=== PATIENT | female | born 1990 | race Caucasian/White ===

== ENCOUNTER 2016-06-02 17:33 | Emergency (ER) | payer SELFPAY ==
[~2016-06-02 17:33] MED LIST: CIPR500T94 PO; CYCL10TA2 PO; HYDR-2666 PO; HYDR-971 PO; TRAM50TA PO
[2016-06-02 19:00] VITALS: BP 168/109
[2016-06-02] MEDS ORDERED: HYDR-971 PO (19:02)
[2016-06-02] MEDS ORDERED: AMOX500C PO (19:02)
--- NOTE | 2016-06-02 19:02 | PHYS DOC ---
Past Medical History Past Medical History: Kidney Stone Past Surgical History: Tonsillectomy Additional Past Surgical Histo: ADNOIDS Alcohol Use: Occasionally Drug Use: Marijuana Adult General Chief Complaint Chief Complaint: EARACHE/EAR PAIN [facility] HPI Patient is a 25 year old female presents emergency room with a complaint of atraumatic right ear pain for the past 3 days. Patient denies any swimming insertion in her ear canal. She reports fevers at home to 102.1 today. States that she took Tylenol approximately 2 hours prior to arrival. Patient denies antibiotic use within the past 90 days. She states that she currently doesn't have a primary care doctor. Review of Systems Review of Systems Constitutional: Denies fever or chills [] Eyes: Denies change in visual acuity, redness, or eye pain [] HENT: Denies nasal congestion or sore throat [] Respiratory: Denies cough or shortness of breath [] Cardiovascular: No additional information not addressed in HPI [] GI: Denies abdominal pain, nausea, vomiting, bloody stools or diarrhea [] : Denies dysuria or hematuria [] Musculoskeletal: Denies back pain or joint pain [] Integument: Denies rash or skin lesions [] Neurologic: Denies headache, focal weakness or sensory changes [] Endocrine: Denies polyuria or polydipsia [] Allergies Allergies Allergies Coded Allergies Type Severity Reaction Last Updated Verified No Known Drug Allergies 10/13/15 No Physical Exam Physical Exam Constitutional: Well developed, well nourished, no acute distress, non-toxic appearance. Patient is afebrile. HENT: Normocephalic, atraumatic, bilateral external ears normal, oropharynx moist, no oral exudates, nose normal. Bilateral ear canals are excoriated which is consistent with her statement that she has not insert anything in her ear canals. Right tympanic membrane is bulging and hyperemic. The margins of the umbo or slightly distorted. There is no fluid meniscus or perforation. There is no evidence of mastoiditis. Eyes: PERRLA, EOMI, conjunctiva normal, no discharge. [] Neck: Normal range of motion, no tenderness, supple, no stridor. [] Cardiovascular:Heart rate regular rhythm, no murmur [] Lungs & Thorax: Bilateral breath sounds clear to auscultation [] Abdomen: Bowel sounds normal, soft, no tenderness, no masses, no pulsatile masses. [] Skin: Warm, dry, no erythema, no rash. [] Back: No tenderness, no CVA tenderness. [] Extremities: No tenderness, no cyanosis, no clubbing, ROM intact, no edema. [] Neurologic: Alert and oriented X 3, normal motor function, normal sensory function, no focal deficits noted. [] Psychologic: Affect normal, judgement normal, mood normal. [] Current Patient Data Vital Signs Vital Signs Date Time Temp Pulse Resp B/P Pulse Ox O2 Delivery O2 Flow Rate FiO2 06/02/16 19:00 98.3 80 18 100 Room Air 98.3 EKG EKG [] Radiology/Procedures Radiology/Procedures [] Course & Med Decision Making Course & Med Decision Making Patient is receiving an additional prescription for Cortisporin otic suspension. [facility] does not have this as it medication listed. The hand written prescription will be provided. Dragon Disclaimer Dragon Disclaimer This electronic medical record was generated, in whole or in part, using a voice recognition dictation system. Departure Departure Impression: Primary Impression: Otitis media Additional Impression: Otitis externa Disposition: 01 HOME, SELF-CARE Condition: GOOD Referrals: NO PCP (PCP) Patient Instructions: Otitis Externa, [id number], Otitis Media, Adult, Easy- to-Read Additional Instructions: 1. Take the medication as prescribed. 2. Review the discharge instructions provided for self-care and reasons to return the emergency department. 3. Use the pamphlet provided for assistance in finding a primary care doctor to address your medical concerns. Scripts Hydrocodone/Apap 5-325 ([place] 5-325 Tablet)1 Each Tablet1 Tab PO PRN Q6HRS PRN PAIN #10 TAB Ref 0 Prov:ROXY FARR 06/02/16 Amoxicillin 500 Mg Capsule1 Cap PO TID #30 CAP Prov:ROXY FARR 06/02/16 Problem Qualifiers ROXY FARR Jun 02, 2016 19:02
== END 2016-06-02 19:08 | disposition home or self-care (01) ==
LOC: ER 17:33
DX: H66.91 Otitis media, unspecified, right ear (principal); H60.91 Unspecified otitis externa, right ear; F12.10 Cannabis abuse, uncomplicated
CPT/HCPCS: 99283

== ENCOUNTER 2016-12-22 19:10 | Emergency (ER) | payer SELFPAY ==
[~2016-12-22] VITALS: Ht 167.6 cm; Wt 133.8 kg
[~2016-12-22 19:10] MED LIST changes: +AMOX500C PO; -HYDR-2666 PO; +HYDR-2758 PO
[2016-12-22 20:33] LABS: BASO # 0.1 x10^3/uL (0.0-0.2); BASO % 0 % (0-3); EOS % 1 % (0-3); HEMATOCRIT 47.4 % (36.0-47.0); LYMPH # 1.6 x10^3/uL (1.0-4.8); LYMPH % 11 % (24-48); MEAN CORPUSCULAR HEMOGLOBIN 32 pg (25-35); MEAN CORPUSCULAR HGB CONC 34 g/dL (31-37); MEAN CORPUSCULAR VOLUME 93 fL (79-100); MONO % 3 % (0-9); NEUT % 86 % (31-73); PLATELET COUNT 373 x10^3/uL (140-400); RED BLOOD COUNT 5.07 x10^6/uL (3.50-5.40); RED CELL DISTRIBUTION WIDTH 13.4 % (11.5-14.5); WHITE BLOOD COUNT 14.9 x10^3/uL (4.0-11.0)
[2016-12-22 21:00] LABS: CALCIUM 9.2 mg/dL (8.5-10.1); CREATININE 1.1 mg/dL (0.6-1.0); GFR 60.5; POTASSIUM 3.8 mmol/L (3.5-5.1)
[2016-12-22] MEDS ORDERED: fentaNYL PF VIAL 100 MCG/2 ML VIAL IV ONE (21:00)
[2016-12-22] MEDS ORDERED: PROCHLORPERAZINE 10 MG/2 ML VIAL. IV ONE (21:00)
[2016-12-22 21:01] LABS: NEG OBC SER NEG; POS OBC SER POS
[2016-12-22 21:04] LABS: ALBUMIN 3.6 g/dL (3.4-5.0); ALBUMIN/GLOBULIN RATIO 0.9 (1.0-1.7); C-REACTIVE PROTEIN 6.3 mg/L (0-3.3); TOTAL BILIRUBIN 0.6 mg/dL (0.2-1.0); TOTAL PROTEIN 7.6 g/dL (6.4-8.2)
[2016-12-22 21:34] LABS: % EOS 1 % (0-5); PLT ESTIMATE ADEQUATE (ADEQUATE)
[2016-12-22 21:45] VITALS: BP 175/62
[2016-12-22 22:24] LABS: BILIRUBIN,URINE NEGATIVE (NEG); GLUCOSE,URINE NEGATIVE (NEG); NITRITE,URINE NEGATIVE (NEG); PROTEIN,URINE NEGATIVE (NEG-TRACE); UROBILINOGEN,URINE 0.2 mg/dL (0.2 mg/dL)
[2016-12-22 22:28] LABS: BACTERIA,URINE FEW /HPF (0-FEW); BARBITURATES NEG (NEG); BENZODIAZEPINES POS (NEG); CANNABINOIDS POS (NEG); COCAINE NEG (NEG); METHADONE NEG (NEG); OPIATES NEG (NEG); PHENCYCLIDINE NEG (NEG); RBC,URINE 0 /HPF (0-2); SQUAMOUS EPITHELIAL CELL,UR MANY /LPF
[2016-12-22] MEDS ORDERED: CONTRAST GIVEN MC PRN (23:00)
[2016-12-22] MEDS ORDERED: IOHEXOL 300 MG/ML 75 ML VIAL IV ONE (23:30)
--- NOTE | 2016-12-23 00:13 | PHYS DOC ---
Past Medical History Past Medical History: Anxiety, Kidney Stone Past Surgical History: Tonsillectomy Additional Past Surgical Histo: ADNOIDS Alcohol Use: Occasionally Drug Use: None Adult General Chief Complaint Chief Complaint: MULTIPLE COMPLAINTS HPI HPI Patient is a 25 year old male with history of anxiety who presents with hyperventilation syndrome, dizziness, tingling in hands and around mouth, nausea and vomiting. Patient states she was nauseated with epigastric abdominal pain was unable to keep down her Seroquel earlier today. She reports becoming acutely anxious this evening with dizziness, tingling around hands and fingers. She presents to the emergency department carpopedal spasm and lightheadedness. Patient reports nausea with multiple episodes earlier today but has not vomited in the past 3 hours. Reports epigastric pain worse with vomiting. Vomit contained stomach contents and bile. Denies hematemesis coffee-ground emesis, constipation or diarrhea. No back pain, flank pain. No fever chills no hematuria , urinary frequency urgency. No prior abdominal surgeries. Patient denies other symptoms or complaints at this time. Review of Systems Review of Systems Review of symptoms as per history of present illness. All other review symptoms are negative. Current Medications Current Medications Current Medications Medications (Trade) Dose Ordered Sig/Tita Start Time Stop Time Status Last Admin Dose Admin Fentanyl Citrate (Fentanyl 2ml Vial) 75 mcg 1X ONCE 12/22/16 21:00 12/22/16 21:01 DC 12/22/16 20:47 75 MCG Info (Do NOT chart on this entry -- for MONITORING) 1 each PRN DAILY PRN 12/22/16 23:00 12/24/16 22:59 Iohexol (Omnipaque 300 Mg/ml) 75 ml 1X ONCE 12/22/16 23:30 12/22/16 23:31 DC Lorazepam (Ativan) 1 mg 1X ONCE 12/22/16 21:00 12/22/16 21:01 DC Prochlorperazine Edisylate (Compazine) 10 mg 1X ONCE 12/22/16 21:00 12/22/16 21:01 DC 12/22/16 20:47 10 MG Allergies Allergies Allergies Coded Allergies Type Severity Reaction Last Updated Verified No Known Drug Allergies 10/13/15 No Physical Exam Physical Exam Constitutional: Well developed, well nourished, no acute distress, non-toxic appearance. [] HENT: Normocephalic, atraumatic, bilateral external ears normal, oropharynx moist, no oral exudates, nose normal. [] Eyes: PERRLA, EOMI, conjunctiva normal, no discharge. [] Neck: Normal range of motion, no tenderness, supple, no stridor. [] Cardiovascular:Heart rate regular rhythm, no murmur [] Lungs & Thorax: Bilateral breath sounds clear to auscultation [] Abdomen: Bowel sounds normal, soft, he is epigastric pain, mild tenderness, no rebound rigidity or guarding and obesity compromising exam. [] Skin: Warm, dry, no erythema, no rash. [] Back: No tenderness, no CVA tenderness. [] Extremities: No tenderness, no cyanosis, no clubbing, ROM intact, no edema. [] Neurologic: Alert and oriented X 3, normal motor function, normal sensory function, no focal deficits noted. [] Psychologic: Affect normal, judgement normal, mood normal. [] Current Patient Data Vital Signs Vital Signs Date Time Temp Pulse Resp B/P (MAP) Pulse Ox O2 Delivery O2 Flow Rate FiO2 12/22/16 21:45 120 175/62 (99) 87 12/22/16 20:47 Room Air 12/22/16 19:25 97.8 38 97.8 Lab Values Laboratory Tests Test 12/22/16 19:55 12/22/16 22:15 White Blood Count 14.9 x10^3/uL (4.0-11.0) H Red Blood Count 5.07 x10^6/uL (3.50-5.40) Hemoglobin 16.0 g/dL (12.0-15.5) H Hematocrit 47.4 % (36.0-47.0) H Mean Corpuscular Volume 93 fL (79-100) Mean Corpuscular Hemoglobin 32 pg (25-35) Mean Corpuscular Hemoglobin Concent 34 g/dL (31-37) Red Cell Distribution Width 13.4 % (11.5-14.5) Platelet Count 373 x10^3/uL (140-400) Neutrophils (%) (Auto) 86 % (31-73) H Lymphocytes (%) (Auto) 11 % (24-48) L Monocytes (%) (Auto) 3 % (0-9) Eosinophils (%) (Auto) 1 % (0-3) Basophils (%) (Auto) 0 % (0-3) Neutrophils # (Auto) 12.7 x10^3uL (1.8-7.7) H Lymphocytes # (Auto) 1.6 x10^3/uL (1.0-4.8) Monocytes # (Auto) 0.4 x10^3/uL (0.0-1.1) Eosinophils # (Auto) 0.1 x10^3/uL (0.0-0.7) Basophils # (Auto) 0.1 x10^3/uL (0.0-0.2) Segmented Neutrophils % 81 % (35-66) H Band Neutrophils % 2 % (0-9) Lymphocytes % 10 % (24-48) L Monocytes % 6 % (0-10) Eosinophils % 1 % (0-5) Platelet Estimate Adequate (ADEQUATE) Sodium Level 144 mmol/L (136-145) Potassium Level 3.8 mmol/L (3.5-5.1) Chloride Level 103 mmol/L (98-107) Carbon Dioxide Level 23 mmol/L (21-32) Anion Gap 18 (6-14) H Blood Urea Nitrogen 8 mg/dL (7-20) Creatinine 1.1 mg/dL (0.6-1.0) H Estimated GFR (Cockcroft-Gault) 60.5 BUN/Creatinine Ratio 7 (6-20) Glucose Level 117 mg/dL (70-99) H Calcium Level 9.2 mg/dL (8.5-10.1) Total Bilirubin 0.6 mg/dL (0.2-1.0) Aspartate Amino Transferase (AST) 29 U/L (15-37) Alanine Aminotransferase (ALT) 47 U/L (14-59) Alkaline Phosphatase 78 U/L (46-116) C-Reactive Protein, Quantitative 6.3 mg/L (0-3.3) H Total Protein 7.6 g/dL (6.4-8.2) Albumin 3.6 g/dL (3.4-5.0) Albumin/Globulin Ratio 0.9 (1.0-1.7) L Lipase 98 U/L (73-393) Serum Test, Qualitative Negative (NEG) Urine Collection Type Unknown Urine Color Yellow Urine Clarity Cloudy Urine pH 8.0 Urine Specific Filer 1.025 Urine Protein Negative mg/dL (NEG-TRACE) Urine Glucose (UA) Negative mg/dL (NEG) Urine Ketones (Stick) 15 mg/dL (NEG) Urine Blood Negative (NEG) Urine Nitrite Negative (NEG) Urine Bilirubin Negative (NEG) Urine Urobilinogen Dipstick 0.2 mg/dL (0.2 mg/dL) Urine Leukocyte Esterase Small (NEG) Urine RBC 0 /HPF (0-2) Urine WBC 1-4 /HPF (0-4) Urine Squamous Epithelial Cells Many /LPF Urine Bacteria Few /HPF (0-FEW) Urine Mucus Mod /LPF Urine Opiates Screen Neg (NEG) Urine Methadone Screen Neg (NEG) Urine Barbiturates Neg (NEG) Urine Phencyclidine Screen Neg (NEG) Urine Amphetamine/Methamphetamine Neg (NEG) Urine Benzodiazepines Screen Pos (NEG) Urine Cocaine Screen Neg (NEG) Urine Cannabinoids Screen Pos (NEG) Urine Ethyl Alcohol Neg (NEG) Laboratory Tests 12/22/16 19:55 Laboratory Tests 12/22/16 19:55 EKG EKG [] Radiology/Procedures Radiology/Procedures [] Course & Med Decision Making Course & Med Decision Making Pertinent Labs and Imaging studies reviewed. (See chart for details) [Nondescript abdominal pain with vomiting and elevation white blood cell count. Given Limited exam, CT abdomen and pelvis was ordered. However, the patient states she fell improved and did not wish to have the CT. States she prefers to follow-up with her primary care physician for reevaluation should her symptoms continue. I Discussed with the patient the limitations of diagnosis and treatment without a CT scan should be needed to exclude more serious pathology given the severity of his symptoms. Patient verbalizes understanding of risks and benefits of discharge but prefers to leave nonetheless. She is instructed to return should she change her mind regarding further imaging or hospitalization.] Dragon Disclaimer Dragon Disclaimer This electronic medical record was generated, in whole or in part, using a voice recognition dictation system. Departure Departure Impression: Primary Impression: Abdominal pain Disposition: 07 AGAINST MEDICAL ADVICE Condition: GUARDED Patient Instructions: Abdominal Pain (Nonspecific) Additional Instructions: Please follow-up with your PCP next office day for reevaluation. In the meantime , if you develop new or worsening symptoms, or change your mind regarding further testing and admission to the hospital return to the emergency department. JAYSHREE ARAGON DO Dec 23, 2016 00:13
== END 2016-12-22 23:10 | disposition left against medical advice (07) ==
LOC: ER 19:10
DX: R10.13 Epigastric pain (principal); R11.2 Nausea with vomiting, unspecified; F45.8 Other somatoform disorders; R42 Dizziness and giddiness; R20.2 Paresthesia of skin; D72.829 Elevated white blood cell count, unspecified; F41.9 Anxiety disorder, unspecified; Z87.442 Personal history of urinary calculi
CPT/HCPCS: 36415; 80053; 80307; 81001; 83690; 84703; 85007; 85025; 86140; 87086; 96374; 96375; 99284; J0780; J2060; J3010; G0479

== ENCOUNTER 2018-08-30 00:05 | Emergency (ER) | payer SELFPAY ==
[~2018-08-30] VITALS: Ht 172.7 cm; Wt 117.0 kg
[~2018-08-30 00:05] MED LIST changes: -HYDR-2758 PO; +HYDR-2761 PO; +HYDR-3164 PO; -HYDR-971 PO
[2018-08-30 00:42] VITALS: BP 153/71
[2018-08-30] MEDS ORDERED: DICL50TA4 PO (00:57)
[2018-08-30] MEDS ORDERED: PRED50TA PO (00:57)
--- NOTE | 2018-08-30 00:57 | PHYS DOC ---
Past Medical History Past Medical History: No Pertinent History Past Surgical History: Tonsillectomy Additional Past Surgical Histo: ADNOIDS Alcohol Use: Occasionally Drug Use: None Adult General Chief Complaint Chief Complaint: EARACHE/EAR PAIN HPI HPI Patient is a 27 year old female who presents to the ED today complaining of 8 out of 10 bilateral ear pain and sore throat that began couple days ago. Patient states the ear pain is worse than the sore throat right now. She describes the year pain as sharp and intermittent. Denies any exacerbating or relieving factors. She states she was seen at [facility] yesterday, was diagnosed with strep, was given a Bicillin injection, she states this injection did not improve any of her symptoms. Patient denies any difficulty swallowing. Denies any fever. Review of Systems Review of Systems Constitutional: Denies fever or chills [] Eyes: Denies change in visual acuity, redness, or eye pain [] HENT: Reports sore throat and bilateral ear pain. Denies nasal congestion Respiratory: Denies cough or shortness of breath [] Cardiovascular: No additional information not addressed in HPI [] GI: Denies abdominal pain, nausea, vomiting, bloody stools or diarrhea [] : Denies dysuria or hematuria [] Musculoskeletal: Denies back pain or joint pain [] Integument: Denies rash or skin lesions [] Neurologic: Denies headache, focal weakness or sensory changes [] All other systems were reviewed and found to be within normal limits, except as documented in this note. Current Medications Current Medications Current Medications Medications (Trade) Dose Ordered Sig/Tita Start Time Stop Time Status Last Admin Dose Admin Acetaminophen/ Hydrocodone Bitart (Lortab 5/325) 2 tab 1X ONCE 08/30/18 01:00 08/30/18 01:01 Ibuprofen (Motrin) 800 mg 1X ONCE 08/30/18 01:00 08/30/18 01:01 Allergies Allergies Allergies Coded Allergies Type Severity Reaction Last Updated Verified No Known Drug Allergies 10/13/15 No Physical Exam Physical Exam Constitutional: Well developed, well nourished, no acute distress, non-toxic appearance. [] HENT: Normocephalic, atraumatic, bilateral external ears normal, oropharynx moist, no oral exudates, nose normal. [] Bilateral TM are moderately injected, no effusion. Posterior pharynx with mild erythema no exudate Eyes: PERRLA, EOMI, conjunctiva normal, no discharge. [] Neck: Normal range of motion, no tenderness, supple, no stridor. [] Cardiovascular:Heart rate regular rhythm, no murmur [] Lungs & Thorax: Bilateral breath sounds clear to auscultation [] Abdomen: Bowel sounds normal, soft, no tenderness, no masses, no pulsatile masses. [] Skin: Warm, dry, no erythema, no rash. [] Back: No tenderness, no CVA tenderness. [] Extremities: No tenderness, no cyanosis, no clubbing, ROM intact, no edema. [] Neurologic: Alert and oriented X 3, normal motor function, normal sensory function, no focal deficits noted. [] Psychologic: Affect normal, judgement normal, mood normal. [] Current Patient Data Vital Signs Vital Signs Date Time Temp Pulse Resp B/P (MAP) Pulse Ox O2 Delivery O2 Flow Rate FiO2 08/30/18 00:42 98.9 96 18 153/71 (98) 96 Room Air 98.9 EKG EKG [] Radiology/Procedures Radiology/Procedures [] Course & Med Decision Making Course & Med Decision Making Pertinent Labs and Imaging studies reviewed. (See chart for details) This is a 27-year-old female patient who presents to the ED today with a sore throat and ear pain. Patient was seen at [facility] yesterday, diagnosed with strep infection, was given a Bicillin injection, she feels her symptoms have not improved with the Bicillin injection. Informed patient she may consider giving the injection 1 more day to see if he starts working, patient states she works long hours as many as 13 hours straight and is not able to go to another facility to be seen in 1-2 days. Was given prescription for amoxicillin and prednisone, discharged to home. Tylenol/Motrin recommended for pain or fever. S altwater gargles also recommended. Dragon Disclaimer Dragon Disclaimer This electronic medical record was generated, in whole or in part, using a voice recognition dictation system. Departure Departure Impression: Primary Impression: Otitis media Additional Impression: Pharyngitis, acute Disposition: 01 HOME, SELF-CARE Condition: STABLE Referrals: LEONOR NAPOLES MD (PCP) follow up with your doctor in 1-2 weeks SHANEKA TOURE MD follow up in 1 week Patient Instructions: Otitis Media, Adult, Viral and Bacterial Pharyngitis Additional Instructions: You were evaluated in the emergency room for sore throat and ear infection, we put you on antibiotics, ensure you take them to completion. Take the prescribed prednisone until completed. Use saltwater gargles as needed for sore throat. Follow-up with your own doctor or the provided ENT specialist in a week. Scripts Diclofenac Sodium (DICLOFENAC SODIUM) 50 Mg Tablet.dr 1 TAB PO BID, #20 TAB 0 Refills Prov: TALYA DAWSON PAROLE DIRECTOR 08/30/18 Prednisone (PREDNISONE) 50 Mg Tablet 1 TAB PO DAILY, #5 TAB Prov: MUTUNGATALYA PAROLE DIRECTOR 08/30/18 Prednisone (PREDNISONE) 50 Mg Tablet 1 TAB PO DAILY, #5 TAB Prov: TALYA DAWSON PAROLE DIRECTOR 08/30/18 Problem Qualifiers Primary Impression: Otitis media Otitis media type: other nonsuppurative Chronicity: acute Laterality: bilateral Recurrence: non-recurrent Qualified Codes: H65.193 - Other acute nonsuppurative otitis media, bilateral Additional Impression: Pharyngitis, acute Pharyngitis/tonsillitis etiology: unspecified etiology Qualified Codes: J02.9 - Acute pharyngitis, unspecified TALYA DAWSON APRN August 30, 2018 00:57
[2018-08-30] MEDS ORDERED: HYDROcodone/APAP 5/325MG 1 TAB TABLET PO ONE (01:00)
[2018-08-30] MEDS ORDERED: IBUPROFEN 400 MG TABLET. PO ONE (01:00)
== END 2018-08-30 01:24 | disposition home or self-care (01) ==
LOC: ER 01:21
DX: H65.193 Other acute nonsuppurative otitis media, bilateral (principal); J02.9 Acute pharyngitis, unspecified; Z90.89 Acquired absence of other organs
CPT/HCPCS: 99283